=== PATIENT | female | born 1945 | race Caucasian/White ===

== ENCOUNTER 2019-09-29 14:18 | Outpatient (CLI) | payer MEDICARE, SELFPAY ==
--- NOTE | ~2019-09-29 | MR_ITS ---
EXAMINATION: MR brain/brain stem wo con DATE: 09/29/2019 15:08 INDICATION: Ataxia. Myelopathy. TECHNIQUE: Magnetic resonance imaging (MRI) of the brain and brainstem was performed without intraven ous contrast. Sequences included sagittal and axial T1-weighted FSE, axial diffusion-weighted FS EPI, axial T2*-weighted GRE, axial T2-weighted FLAIR Propeller, and axial T2-weighted Propeller. Apparent diffusion coefficient (ADC) maps were created. COMPARISON: None. FINDINGS: There is no intracranial hemorrhage, acute infarction, or abnormal intracranial mass lesion . The ventricles are normal in size. There is mucosal thickening in the paranasal sinuses and fluid i n right maxillary sinus. The mastoid air cells are normal. There are likely changes of ocular lens re placement surgeries. IMPRESSION: 1. Normal brain. Reviewed, dictated and finalized at location A. IMPRESSION: 1. Normal brain.
--- NOTE | ~2019-09-29 | MR_ITS ---
EXAMINATION: MR cervical spine wo con DATE: 09/29/2019 15:27 INDICATION: Ataxia. Myelopathy. TECHNIQUE: Magnetic resonance imaging (MRI) of the cervical spine was performed without intravenous c ontrast. Sequences included sagittal T2-weighted FSE, sagittal T2-weighted FS FSE, sagittal STIR FSE, sagittal T1-weighted FSE, axial MERGE, and axial T2-weighted FSE. COMPARISON: None FINDINGS: Bone alignment is normal. There are changes of anterior fusion procedure from C4 to C7 with discectomies and healed interbody bone graft. There is an anterior plate and screws at C6-C7. There is mild chronic anterior wedging of T1 vertebral body. There is mildly decreased disc height at C3-C4 . The spinal cord demonstrates increased T2-weighted signal intensity on the right at C5-C6, consiste nt with myelomalacia. The following disc levels are specifically discussed: C2-C3: The disc does not extend beyond the endplate margin. There is no uncovertebral joint osteoarth ritis. There is moderate bilateral facet joint osteoarthritis. There is mild bilateral neural foramin al stenosis. There is no central canal stenosis. C3-C4: The disc is bulging. There is mild right and moderate left uncovertebral joint osteoarthritis. There is severe bilateral facet joint osteoarthritis. There is mild right and moderate left neural f oraminal stenosis. There is mild central canal stenosis with ventral indentation of the spinal cord. C4-C5: There is no uncovertebral joint hypertrophy. There is no facet joint osteoarthritis. There is no neural foraminal stenosis. There is no central canal stenosis. C5-C6: There is no uncovertebral joint hypertrophy. There is mild bilateral facet joint osteoarthriti s. There is no neural foraminal stenosis. There is no central canal stenosis. C6-C7: There is mild bilateral uncovertebral joint hypertrophy. There is mild bilateral facet joint o steoarthritis. There is no neural foraminal stenosis. There is no central canal stenosis. C7-T1: The disc does not extend beyond the endplate margin. There is no uncovertebral joint osteoarth ritis. There is severe bilateral facet joint osteoarthritis. There is mild bilateral neural foraminal stenosis. There is no central canal stenosis. IMPRESSION: 1. Mild cervical spondylosis. 2. Anterior fusion procedure from C4 to C7. 3. Myelomalacia at C5-C6. Reviewed, dictated and finalized at location A.
== END 2019-09-29 14:19 | disposition home or self-care (01) ==
PROVIDERS: PCP Family Medicine; Visit Provider Psychiatry & Neurology Neurology
DX: R27.0 Ataxia, unspecified (principal); G95.9 Disease of spinal cord, unspecified; M47.892 Other spondylosis, cervical region; Z98.1 Arthrodesis status
CPT/HCPCS: 70551; 72141

== ENCOUNTER 2019-12-20 08:19 | Outpatient (CLI) | payer MEDICARE, SELFPAY ==
--- NOTE | 2019-12-20 10:45 | NEURO_ITS ---
Patient Number: [id number] Impression: # Complains of numbness of arms and legs. # Normal nerve conduction study including motor and sensory nerves. # Normal needle/EMG exam. # Clinical correlation recommended. Nerve Conduction Studies Anti Sensory Summary Table Stim Site NR Peak (ms) P-T Amp (?V) Site1 Site2 Delta-P (ms) Dist (cm) Tim (m/s) Left Median Anti Sensory (2-3nd Digit) Wrist 2.9 51.6 Wrist 2-3nd Digit 2.9 14.0 48 Wrist 2.9 30.1 Wrist 2-3nd Digit 2.9 14.0 48 Right Median Anti Sensory (2-3nd Digit) Wrist 2.9 36.9 Wrist 2-3nd Digit 2.9 14.0 48 Wrist 3.0 38.4 Wrist 2-3nd Digit 2.9 14.0 48 Left Radial Anti Sensory (Base 1st Digit) Wrist 2.1 32.8 Wrist Base 1st Digit 2.1 0.0 Right Radial Anti Sensory (Base 1st Digit) Wrist 2.4 17.4 Wrist Base 1st Digit 2.4 0.0 Left Sup Fibular Anti Sensory (Ant Lat Mall) 14 cm 3.6 19.0 14 cm Ant Lat Mall 3.6 16.0 44 Right Sup Fibular Anti Sensory (Ant Lat Mall) 14 cm 3.9 28.1 14 cm Ant Lat Mall 3.9 16.0 41 Left Sural Anti Sensory (Lat Mall) Calf 3.8 7.3 Calf Lat Mall 3.8 16.0 42 Right Sural Anti Sensory (Lat Mall) Calf 3.4 5.2 Calf Lat Mall 3.4 16.0 47 Left Ulnar Anti Sensory (5th Digit) Wrist 2.7 20.6 Wrist 5th Digit 2.7 14.0 52 Right Ulnar Anti Sensory (5th Digit) Wrist 2.5 59.3 Wrist 5th Digit 2.5 14.0 56 Motor Summary Table Stim Site NR Onset (ms) O-P Amp (mV) Site1 Site2 Delta-0 (ms) Dist (cm) Tim (m/s) Left Median Motor (Abd Poll Brev) Wrist 2.8 3.9 Elbow Wrist 4.9 27.0 55 Elbow 7.7 2.3 Right Median Motor (Abd Poll Brev) Wrist 3.3 5.3 Elbow Wrist 5.2 30.0 58 Elbow 8.5 5.2 Left Peroneal Motor (Vastus Med) Ankle 4.7 3.1 Popit Ankle 8.3 37.0 45 Popit 13.0 2.2 Right Peroneal Motor (Vastus Med) Ankle 4.5 3.1 Popit Ankle 8.2 39.0 48 Popit 12.7 2.2 Left Tibial Motor (Abd Benoit Brev) Ankle 5.2 3.5 Knee Ankle 9.0 41.0 46 Knee 14.2 2.7 Right Tibial Motor (Abd Benoit Brev) Ankle 5.1 4.1 Knee Ankle 8.9 39.0 44 Knee 14.0 2.0 Left Ulnar Motor (Abd Dig Minimi) Wrist 2.8 5.2 A Elbow Wrist 5.6 29.0 52 A Elbow 8.4 4.6 B Elbow Wrist 3.6 20.0 56 B Elbow 6.4 6.1 Right Ulnar Motor (Abd Dig Minimi) Wrist 3.0 4.4 A Elbow Wrist 5.7 29.0 51 A Elbow 8.7 3.2 B Elbow Wrist 4.3 23.0 53 B Elbow 7.3 3.0 F Wave Studies NR F-Lat (ms) L-R F-Lat (ms) Left Median (Mrkrs) (Abd Poll Brev) 28.89 0.47 Right Median (Mrkrs) (Abd Poll Brev) 29.35 0.47 Left Peroneal (Mrkrs) (EDB) 55.68 0.46 Right Peroneal (Mrkrs) (EDB) 55.21 0.46 Left Tibial (Mrkrs) (Abd Hallucis) 54.74 1.32 Right Tibial (Mrkrs) (Abd Hallucis) 53.42 1.32 Left Ulnar (Mrkrs) (Abd Dig Min) 29.22 0.25 Right Ulnar (Mrkrs) (Abd Dig Min) 29.47 0.25 EMG Side Muscle Nerve Root Ins Act Fibs Amp Dur Recrt Comment Right 1stDorInt Ulnar C8-T1 Nml Nml Nml Nml Nml Right Ext Indicis Radial (Post Int) C7-8 Nml Nml Nml Nml Nml Right Ext Digitorum Radial (Post Int) C7-8 Nml Nml Nml Nml Nml Right BrachioRad Radial C5-6 Nml Nml Nml Nml Nml Right PronatorTeres Median C6-7 Nml Nml Nml Nml Nml Right Abd Poll Brev Median C8-T1 Nm
== END 2019-12-20 08:20 | disposition home or self-care (01) ==
LOC: ANHNEURO 08:21
PROVIDERS: Visit Provider Psychiatry & Neurology Neurology
DX: G62.9 Polyneuropathy, unspecified (principal)
CPT/HCPCS: 95886; 95913

== ENCOUNTER → 2020-05-01 16:20 | Outpatient (REF) | payer MEDICARE, SELFPAY | LOC: ANHLAB 16:20 | PROVIDERS: Visit Provider Nurse Practitioner | DX: D23.112 Other benign neoplasm of skin of right lower eyelid, including canthus (principal) | CPT/HCPCS: 88304; 88305 ==